=== PATIENT | female | born 2005 | race Caucasian/White ===

== ENCOUNTER 2025-03-25 12:11 | Emergency (ER) | payer MEDICARE, SELFPAY ==
[2025-03-25 12:12] VITALS: BP 124/86
[2025-03-25 12:53] LABS: Urine Character Clear (Clear)
[2025-03-25 13:18] LABS: Urine Squamous Cell 26-30 /LPF (Few)
[2025-03-25] MEDS: TORADOL 15 MG IV (13:57)
[2025-03-25] MEDS: NSS 1000 IV (13:57)
[2025-03-25 14:12] LABS: Hematocrit 40.1 % (37.0-47.0); Hemoglobin 13.9 g/dL (12.0-16.0); Mean Corp Hgb Conc. 34.7 g/dL (33.0-37.0); Mean Corpuscular Volume 78.8 fL (81.0-99.0); Nucleated Red Blood Cells % 0 %; Platelet Count 274 10^3/uL (130-400); Red Cell Dist. Width 12.0 % (11.5-14.5)
[2025-03-25 14:23] LABS: HCG, Serum Qualitative Screen Negative
[2025-03-25 14:29] LABS: ALT (SGPT) 39 U/L (0-35); AST (SGOT) 28 U/L (14-36); Albumin 4.7 g/dl (3.5-5.0); Alkaline Phosphatase 66 U/L (38-126); Blood Urea Nitrogen 19 mg/dl (7-17); Calcium 9.4 mg/dl (8.4-10.2); Carbon Dioxide 26 mmol/L (22-30); Chloride 106 mmol/L (98-107); Glucose 96 mg/dl (70-99); Potassium 4.2 mmol/L (3.5-5.1); Sodium 139 mmol/L (135-145); Total Protein 7.3 g/dl (6.3-8.2); eGFR > 60.00
[2025-03-25 15:14] VITALS: BP 88/49
--- NOTE | 2025-03-25 15:36 | ED.GENMED ---
History of Present Illness
<Mary Cartwright PA-C - Last Filed: 03/25/25 21:15>
General
Chief Complaint: Flank Pain
Source: patient
Exam Limitations: none
Time Seen by Provider: 03/25/25 12:45
Nursing documentation reviewed up to this point in time: agreed with
History of Present Illness
History of Present Illness:
Patient is a 19-year-old female who presents emergency department with right flank pain. Patient states she had minor discomfort in her right flank on Tuesday however symptoms worsened this morning. She describes a constant pain in her right mid
back without radiation into her abdomen. She feels pain is somewhat worse with certain movements and deep breath. She did have 1 episode of vomiting this morning. She denies any chest pain or shortness of breath. No fevers, chills. She denies
any dysuria.
Of note�patient was seen at [facility] a little over a week ago and diagnosed with a UTI, she completed a course of Bactrim. Her dysuria/urinary frequency have completely resolved.
Patient denies any recent surgery or recent travel. She has a Mirena IUD.
Review of Systems
<Mary Cartwright PA-C - Last Filed: 03/25/25 21:15>
Review of Systems
Allergies reviewed?: Yes
All Other Systems: ROS reviewed and negative except as documented in HPI and ROS
Phy Exam
<Mary Cartwright PA-C - Last Filed: 03/25/25 21:15>
Physical Exam
Physical Exam:
Vitals: Mildly tachycardic on arrival. Otherwise vital signs stable. Afebrile
General: Patient is well appearing, no acute distress. Nontoxic appearing
Skin: Warm and dry, no rashes or lesions
Head: Normocephalic, atraumatic
Eyes: Sclera nonicteric. EOMs intact. No nystagmus.
Throat: Protecting airway
Neck: Normal ROM, no cervical spine tenderness, no meningismus
Cardiac: Mildly tachycardic, normal rhythm, no murmurs.
Pulm: Normal respiratory effort, no wheezes, rales, rhonchi heard on exam
Abdomen: Abdomen soft. Mild tenderness in suprapubic region. With tenderness in right flank without ecchymosis or rash.
Extremities: No evidence of cyanosis or edema. Negative Homans' sign bilateral
Neuro: AAOx3. CN II-XII intact. No focal neurologic deficits.
Psychiatric: Normal affect.
Course
<Mary Cartwright PA-C - Last Filed: 03/25/25 21:15>
Orders/Labs/Results
Orders:
Orders
03/25/25 12:33
Urine Microscopic Reflex Cult Urgent
Urine Reflex Culture from UA [Urinalysis Reflex To Culture] Urgent
Date Specimen was Collected: 03/25/25
Time Specimen was Collected: 12:16
Urine Culture Urgent
MONSERRAT Source: U
Specimen Description:
Date Specimen was Collected: 03/25/25
Time Specimen was Collected: 12:16
03/25/25 13:48
0.9% Sodium Chloride 1000 ml [Nss] 1,000 ml IV BOLUS
Ketorolac [Toradol] 15 mg IV NOW STA
03/25/25 13:49
Test Result ONCE
03/25/25 13:57
Abdomen/Pelvis wo Contrast CT [CT Abd/pelvis Wo Iv Cont] Urgent
Comment:
Reason For Exam: Right flank pain
03/25/25 14:04
Complete Blood Count/With Diff Urgent
Comprehensive Metabolic Panel Urgent
HCG, Serum Qualitative Screen Urgent
03/25/25 17:41
D-Dimer Urgent
Abnormal Lab Results
03/25/25 03/25/25
12:33 14:04
MCV 78.8 L fL
(81.0-99.0)
BUN 19 H mg/dl
(7-17)
ALT 39 H U/L
(0-35)
Ur Occult Blood Reflex 3+ A
(Negative)
Leukocyte Esterase Rfl 1+ A
(Negative)
Urine RBC 3-6 A /HPF
(0-2)
Urine Bacteria (Reflex) Few A
(Negative)
Urine Albumin (Reflex) 2+ A
(Neg - Trace)
03/25/25 14:04
03/25/25 14:04
Vital Signs
Initial and Last Documented VS:
Initial Vital Signs
Temp Pulse Resp BP Pulse Ox
98.0 F 107 20 124/86 99
03/25/25 12:12 03/25/25 12:12 03/25/25 12:12 03/25/25 12:12 03/25/25 12:12
Last Documented Vital Signs
Temp Pulse Resp BP Pulse Ox
98.0 F 81 18 95/52 98
03/25/25 12:12 03/25/25 18:05 03/25/25 18:05 03/25/25 18:05 03/25/25 18:05
<Gil Campa, DO - Last Filed: 03/25/25 19:08>
Orders/Labs/Results
Orders:
Orders
03/25/25 12:33
Urine Microscopic Reflex Cult Urgent
Urine Reflex Culture from UA [Urinalysis Reflex To Culture] Urgent
Date Specimen was Collected: 03/25/25
Time Specimen was Collected: 12:16
Urine Culture Urgent
MONSERRAT Source: U
Specimen Description:
Date Specimen was Collected: 03/25/25
Time Specimen was Collected: 12:16
03/25/25 13:48
0.9% Sodium Chloride 1000 ml [Nss] 1,000 ml IV BOLUS
Ketorolac [Toradol] 15 mg IV NOW STA
03/25/25 13:49
Test Result ONCE
03/25/25 13:57
Abdomen/Pelvis wo Contrast CT [CT Abd/pelvis Wo Iv Cont] Urgent
Comment:
Reason For Exam: Right flank pain
03/25/25 14:04
Complete Blood Count/With Diff Urgent
Comprehensive Metabolic Panel Urgent
HCG, Serum Qualitative Screen Urgent
03/25/25 17:41
D-Dimer Urgent
Abnormal Lab Results
03/25/25 03/25/25
12:33 14:04
MCV 78.8 L fL
(81.0-99.0)
BUN 19 H mg/dl
(7-17)
ALT 39 H U/L
(0-35)
Ur Occult Blood Reflex 3+ A
(Negative)
Leukocyte Esterase Rfl 1+ A
(Negative)
Urine RBC 3-6 A /HPF
(0-2)
Urine Bacteria (Reflex) Few A
(Negative)
Urine Albumin (Reflex) 2+ A
(Neg - Trace)
03/25/25 14:04
03/25/25 14:04
Vital Signs
Initial and Last Documented VS:
Initial Vital Signs
Temp Pulse Resp BP Pulse Ox
98.0 F 107 20 124/86 99
03/25/25 12:12 03/25/25 12:12 03/25/25 12:12 03/25/25 12:12 03/25/25 12:12
Last Documented Vital Signs
Temp Pulse Resp BP Pulse Ox
98.0 F 81 18 95/52 98
03/25/25 12:12 03/25/25 18:05 03/25/25 18:05 03/25/25 18:05 03/25/25 18:05
<Mary Cartwright PA-C - Last Filed: 03/25/25 21:15>
MDM/Problems Addressed
Differential Diagnosis Includes:
Not limited to: Renal colic, pyelonephritis, cystitis, muscle strain/spasm, pulmonary embolism, etc.
MDM/Problems Addressed:
19-year-old female presenting with right flank pain after recent treated UTI. She has had 1 episode of vomiting however denies fever, chills, chest pain, shortness of breath. Mildly tachycardic on arrival with otherwise normal vital signs. She is
afebrile. On exam as patient well-appearing, in no apparent distress. She is nontoxic-appearing. Abdomen soft and nontender. She does have some reproducible tenderness in right flank region without ecchymoses or rash. No clinical evidence of
DVT on exam. Urinalysis obtained prior to my evaluation reveals 3-6 RBCs without any clear indication of infection.
Differential as above. Flank pain does appear to be acutely worse today�possibly renal colic/kidney stone. In light of recent being treated UTI, would also consider pyelonephritis or incompletely treated UTI. While patient does report mild
pleuritic component to pain, she has no associated chest pain or shortness of breath with no clinical evidence of DVT on exam or notable risk factors for PE. Feel this is much less likely. Will check basic labs and obtain noncontrast scan
abdomen/pelvis for stone search. Will reassess after above.
Update 3:40 PM: Labs noted no leukocytosis. No renal insufficiency. Did reassess patient at bedside who is sleeping comfortably. She did have a period of borderline hypotension however was sleeping at that time. IV fluids resumed. Her pain has
improved following dose of IV Toradol. CT pending.
Case signed out to attending physician pending CT report.
Chronic conditions affecting care:
N/A
<Mary Cartwright PA-C - Last Filed: 03/25/25 21:15>
*Pulse Oximetry
SaO2: 99
Oxygen Mode of Delivery: Room air
Patient hypoxic: no
*EKG
Interpreted by ED Provider?: NA
*Regional Cra Interpretation
Rate: Regional Cra- N/A
*Critical Care Note
Total Time (30-74mins, 75-104mins- exclusive of procedures): Not Applicable
ED Attending Note
<Mary Cartwright PA-C - Last Filed: 03/25/25 21:15>
-
Portions of this chart may have been created with voice recognition software.� Occasional wrong word or��sound alike� substitutions may have occurred due to the inherent limitations of voice recognition software.
<Gil Campa DO - Last Filed: 03/25/25 19:08>
ED Attending Note
Patient seen and examined by attending physician: Yes
I performed the substantive portion of visit, reviewed & personally made and approve the management plan that is documented in note by myself or MORALES.: Yes
ED Attending Note:
19-year-old female with right back pain is worse with breathing and a little bit worse with moving. CT negative D-dimer negative at this point I do think it is musculoskeletal. Will advise NSAIDs, rest and outpatient follow-up. I did recommend
close follow-up for her microscopic hematuria and findings on CT to include Mirena that is out of place
Discharge Plan
Departure
Patient Disposition: Home (Routine Discharge)
Date of Disposition: 03/25/25
Time of Disposition: 19:07
Patient with high blood pressure during this ER visit?: No
Discharge Problem:
Back pain, Microscopic hematuria
Instructions: Flank Pain (DC), Back Pain
Referrals:
Donald Martinez DO [Family Provider, Family Practice]
Activity Restrictions/Additional Instructions:
Please rest and use ibuprofen for pain control. Please be sure to have your doctor repeat your urinalysis in the next 2 weeks to be sure that the microscopic blood in your urine has resolved. Please see your body bumper in the next 1 week for
follow-up and reevaluation of your CT scan Mirena may be out of place.
Interventions
Interventions:
*General Assessment Last Done: 03/25/25 12:12
*Nursing Disposition Last Done: 03/25/25 19:19
OF-Kqdedn-Xfocdjeifo Assessment Last Done: 03/25/25 14:08
ED-Female Genitourinary Assessment Last Done: 03/25/25 14:08
Discharge Date and Time
Discharge Date/Time: 03/25/25 19:22
Print Language: IRISH
[2025-03-25 15:47] VITALS: BP 111/66
[2025-03-25 18:05] VITALS: BP 95/52
[2025-03-25 18:07] LABS: D-Dimer < 0.27 ug/mlFEU (0.00-0.50)
== END 2025-03-25 19:22 | disposition home or self-care (01) ==
LOC: EMR 12:11
PROVIDERS: Physician Assistant; Student in an Organized Health Care Education/Training Program; EMERGENCY PHYSICIAN Emergency Medicine; FAMILY PHYSICIAN Anesthesiology
DX: R10.9 Unspecified abdominal pain (principal); R11.10 Vomiting, unspecified; R31.29 Other microscopic hematuria; Z87.440 Personal history of urinary (tract) infections; Z97.5 Presence of (intrauterine) contraceptive device
CPT/HCPCS: 99284; 96374; 96361; 74176; 80053; 81003; 81015; 84703; 85025; 85379; 87086